=== PATIENT | female | born 1960 | race Caucasian/White ===

== ENCOUNTER 2018-12-11 12:09 | Emergency (ER) | payer OTHER ==
[~2018-12-11] VITALS: Wt 118.0 kg
[2018-12-11 12:12] VITALS: BP 160/78; PULSE 99; RESP 18
[2018-12-11] MEDS ORDERED: KETOROLAC 30 MG INJ IM STA (13:30)
[2018-12-11] MEDS ORDERED: CYCLOBENZAPRINE 10 MG TAB PO ONE (14:00)
[2018-12-11] MEDS ORDERED: HYDR-3980 PO (14:08)
[2018-12-11] MEDS ORDERED: MED4DP PO (14:08)
[2018-12-11] MEDS ORDERED: IBUP-1542 PO (14:08)
--- NOTE | 2018-12-11 14:21 | ERD ---
ER Documentation Chief Complaint Chief Complaint back pain rad left leg x 10 days HPI This is a 58-year-old with history of sciatica and chronic back pain presents for exacerbation of her chronic back pain x10 days. Patient states she thinks she may have moved a certain way which provoked her pain. She reports sharp 9/10 left lower lumbar pain, that radiates down to her left leg, progressively worse for the past 2 days. Pain is worse when lying down or moving. She states she usually takes [place] for pain but is running out of this medication. She states she had an MRI of her lumbar spine 2 years ago which showed herniated disks of L5-S1 and L4-L5. She denies any direct trauma or fall. She states she used to see an orthopedist and was given epidural injections "as needed ". She does not have any appointment to see the orthopedist soon. She denies any loss of bowel or bladder control. Denies any focal weakness. Denies any fevers or chills. Denies any trauma. Denies any other symptoms. ROS All systems reviewed and are negative except as per history of present illness. Medications Home Meds Active Scripts Ibuprofen* (Motrin*) 600 Mg Tab, 600 MG PO Q6H PRN for PAIN AND OR ELEVATED TEMP, #30 TAB Prov:DISHIGRIKIAN,ZEPYUR N PA-C 12/11/18 Hydrocodone/Acetaminophen ([place] 10-325 Tablet) 1 Each Tablet, 1 EACH PO Q12 for pain, #10 TAB Prov:DISHIGRIKIAN,ZEPYUR N PA-C 12/11/18 Methylprednisolone* (Medrol* DOSE PACK) 4 Mg/Dose-Pack Tab.ds.pk, 4 MG PO . DIRECTED, #1 PACKET Prov:DISHIGRIKIAN,ZEPYUR N PA-C 12/11/18 Allergies Allergies: Coded Allergies: No Known Allergy (Unverified , 12/11/18) PMhx/Soc Hx Miscellaneous Medical Probl: Yes (SCIATICA) Hx Alcohol Use: No Hx Substance Use: No Hx Tobacco Use: No Physical Exam Vitals Vital Signs Date Temp Pulse Resp B/P (MAP) Pulse Ox O2 O2 Flow FiO2 Time Delivery Rate 12/11/18 98.1 99 18 160/78 99 12:12 (105) Physical Exam Const: + Moderate distress, secondary to pain. And bleeding with a cane Head: Atraumatic Eyes: Normal Conjunctiva ENT: Normal External Ears, Nose and Mouth. Neck: Full range of motion. No meningismus. Resp: Clear to auscultation bilaterally Cardio: Regular rate and rhythm, no murmurs Abd: Soft, non tender, non distended. Normal bowel sounds Skin: No petechiae or rashes Back: + Moderate left paralumbar spinal tenderness palpation. No midline tenderness. No step-offs. 5/5 BLE strength, sensation grossly intact. Ext: No cyanosis, or edema Neur: Awake and alert Psych: Normal Mood and Affect Results 24 hrs Current Medications Medications Dose Sig/Nadja Start Time Status Last (Trade) Ordered Route PRN Stop Time Admin Dose Reason Admin Ketorolac 30 mg ONCE STAT 12/11/18 DC 12/11/18 Tromethamine IM 13:30 12/11/18 13:46 (Toradol) 13:31 20 mg ONCE ONCE 12/11/18 DC 12/11/18 Cyclobenzapri PO 14:00 12/11/18 13:46 ne HCl 14:01 (Flexeril) Procedures/MDM ED COURSE: The patient was given Flexeril, IM Toradol The medication was well tolerated and the patient had market improvement in symptoms. The patient remained stable throughout ED course. MEDICAL DECISION MAKIN-year-old female with history of sciatica presents with exacerbation of her chronic back pain. She has no new trauma. I do not think she needs further w ork-up or advanced imaging other symptoms are chronic in nature. Her pain improved status post Flexeril and Toradol. She has no focal neurologic deficits on physical exam. I have low suspicion for epidural abscess, cauda equina, cord compression, spinal tumor/mass or compression fracture. She has no fever here and vital signs are stable. She was given a very short prescription for [place], as well as a Medrol Dosepak. I discussed with her that she needs to follow-up with the orthopedist or [facility] for further management of her chronic pain. Patient understands. She is discharged home with strict return precautions. PRESCRIPTIONS: Medrol Dosepak, [place], ibuprofen SPECIALIST FOLLOW UP RECOMMENDED: Ortho, [facility] Patient has been advised to follow up with primary care in 1-2 days. Blood Pressure Assessment: Patient's blood pressure was elevated (>120/80) but appears stable without evidence of hypertension emergency or urgency. The patient was counseled about the risks of hypertension and urged to pursue outpatient monitoring and therapy within a week with their primary care physician. Departure Diagnosis: Primary Impression: Sciatica Laterality: left Qualified Codes: M54.32 - Sciatica, left side Condition: Stable Patient Instructions: Back Pain W/ Sciatica Referrals: [facility] 7 a.m.- 11 p.m. Every Day of the Week NO APPOINTMENT OR AUTHORIZATION NEEDED SO [facility] Hours: Mon-Thu 9:00 AM - 5:00 PM Additional Instructions: you must follow-up with your primary care provider for referral to an orthopedist. Take the steroids for the next few days, I am giving you a very short prescription of [place] however this needs to be refilled by either your primary care doctor and orthopedist. Return here for any loss of bowel or bladder control, fevers, numbness, tingling or any other worsening symptoms. ENID DE LUNA PA-C Dec 11, 2018 14:21
== END 2018-12-11 14:31 | disposition home or self-care (01) ==
LOC: FTE 12:09
DX: M54.42 Lumbago with sciatica, left side (principal)
CPT/HCPCS: 96372; J1885; Z7502; Z7610

== ENCOUNTER 2019-01-05 14:18 | Emergency (ER) | payer OTHER ==
[~2019-01-05] VITALS: Ht 165.1 cm; Wt 99.0 kg
[~2019-01-05 14:18] MED LIST: HYDR-3980 PO; IBUP-1542 PO; MED4DP PO
[2019-01-05 14:28] VITALS: Ht 165.1 cm; Wt 99.0 kg
[2019-01-05] MEDS ORDERED: KETOROLAC 60 MG INJ IM STA (16:25)
[2019-01-05] MEDS ORDERED: HYDROCODONE/APAP (10/325) TAB PO ONE (16:30)
[2019-01-05] MEDS ORDERED: NAPR-985 PO (16:30)
[2019-01-05] MEDS ORDERED: CYCL10TA7 PO (16:30)
[2019-01-05] MEDS ORDERED: METHYLPREDNISOLONE 125 MG INJ IM ONE (16:30)
[2019-01-05] MEDS ORDERED: CYCLOBENZAPRINE 10 MG TAB PO ONE (16:30)
[2019-01-05] MEDS ORDERED: HYDR-3980 PO (16:30)
--- NOTE | 2019-01-05 16:40 | ERD ---
ER Documentation Chief Complaint Chief Complaint BACK PAIN , HX SCIATICA HPI This is a 58-year-old female with a history of sciatica and chronic low back pain who presents ED with complaints of flareup of back pain that started roughly 3 weeks ago. Patient states that the pain is localized to the left lower back and radiates down the left posterior leg. pain is aggravated with lying down and moving. Patient states that she was seen by her primary care physician and had an MRI ordered. Patient has not had MRI performed yet. is seeking an epidural injection for her pain. Denies recent fall or injury. Denies fevers, chills, bowel/bladder incontinence, saddle paresthesias, weakness. No history of IV drug abuse. Ambulates with cane. ROS All systems reviewed and are negative except as per history of present illness. Medications Home Meds Active Scripts Naproxen* (Naprosyn*) 500 Mg Tablet, 500 MG PO BID PRN for PAIN AND/OR INFLAMMATION, #30 TAB Prov:FRIEDA KEARNS PA-C 01/05/19 Cyclobenzaprine Hcl* (Cyclobenzaprine Hcl*) 10 Mg Tablet, 10 MG PO TID, #15 TAB Prov:FRIEDA KEARNSC 01/05/19 Hydrocodone/Acetaminophen ([place] 10-325 Tablet) 1 Each Tablet, 1 TAB PO Q6H PRN for PAIN, #7 TAB Prov:FRIEDA KEARNS PA-C 01/05/19 Ibuprofen* (Motrin*) 600 Mg Tab, 600 MG PO Q6H PRN for PAIN AND OR ELEVATED TEMP, #30 TAB Prov:ELMOIGRIKIANKRAIGPYUR Maurice PA-C 12/11/18 Hydrocodone/Acetaminophen ([place] 10-325 Tablet) 1 Each Tablet, 1 EACH PO Q12 for pain, #10 TAB Prov:ELMOIGRIKIANKRAIGPYUR N PA-C 12/11/18 Methylprednisolone* (Medrol* DOSE PACK) 4 Mg/Dose-Pack Tab.ds.pk, 4 MG PO . DIRECTED, #1 PACKET Prov:ELMOIGRIKIANZEPYUR N PA-C 12/11/18 Allergies Allergies: Coded Allergies: No Known Allergy (Unverified , 12/11/18) PMhx/Soc Hx Miscellaneous Medical Probl: Yes (SCIATICA) Hx Alcohol Use: No Hx Substance Use: No Hx Tobacco Use: No FmHx Family History: No diabetes Physical Exam Vitals Vital Signs Date Temp Pulse Resp B/P (MAP) Pulse Ox O2 O2 Flow FiO2 Time Delivery Rate 01/05/19 98.5 99 18 160/71 99 14:28 (100) Physical Exam Const: In mild distress secondary to pain Head: Atraumatic Eyes: Normal Conjunctiva ENT: Normal External Ears, Nose and Mouth. Neck: Full range of motion. No meningismus. Resp: Clear to auscultation bilaterally Cardio: Regular rate and rhythm, no murmurs Skin: No petechiae or rashes Back: No thoracic or lumbar midline tenderness, there is moderate tenderness palpation along the paravertebral muscles in the left low back, no step-off deformities, 5 out of 5 strength, positive straight leg raise on the left-hand side Ext: No cyanosis, or edema Neur: Awake and alert Psych: Normal Mood and Affect Results 24 hrs Current Medications Medications Dose Sig/Nadja Start Time Status Last (Trade) Ordered Route PRN Stop Time Admin Dose Reason Admin 1 tab ONCE ONCE 01/05/19 DC 01/05/19 Acetaminophen PO 16:30 16:37 / 01/05/19 16:31 Hydrocodone Bitart ([place] (10/325)) 10 mg ONCE ONCE 01/05/19 DC 01/05/19 Cyclobenzapri PO 16:30 16:37 ne HCl 01/05/19 16:31 (Flexeril) 125 mg ONCE ONCE 01/05/19 DC 01/05/19 Methylprednis IM 16:30 16:38 olone Sodium 01/05/19 16:31 Succinate (Solu-Medrol) Ketorolac 60 mg ONCE STAT 01/05/19 DC 01/05/19 Tromethamine IM 16:25 16:38 (Toradol) 01/05/19 16:28 Procedures/MDM ER COURSE: The patient was given Toradol, Solu-Medrol, Flexeril and [place] The medication was well tolerated and the patient reports improvement in symptoms. The patient was stable throughout ED course. I kept the patient and/or family informed of laboratory and diagnostic imaging results throughout the emergency room course. The patient was promptly evaluated and a treatment plan was devised based on H&P and other data. This plan was discussed with the patient who agreed and had no further questions or concerns prior to discharge. MEDICAL DECISION MAKING: This is a 58-year-old female with a history of sciatica and chronic low back pain who presents ED with complaints of flareup of low back pain that started roughly 3 weeks ago. Patient was seen by her primary care physician and has an MRI ordered. Patient has not had MRI performed - advised patient that she needs to go have this done as she does have the order in hand to have it done at the [facility]. is here seeking an epidural injection. I advised and patient that we cannot do any epidural injections in the emergency department today and she needs to be seen by an digital campaign specialist to have this done. Patient was advised to follow-up with digital campaign specialist and pain management. History and physical examination other data not consistent with processing including cauda equina syndrome, cord compression, infiltrative etiology, infectious etiology, epidural abscess, fracture, obstructive pyelonephritis, abdominal aortic aneurysm. Vitals are stable and patient can be managed outpatient with close follow-up. Advised patient to follow up with primary care in the next 48 hours. return to ED with any worsening symptoms DISPOSITION PLAN: We discussed follow up with the patient's primary care doctor within 24 to 48 hours. Patient counseled regarding my diagnostic impression and care plan. Prior to discharge all questions answered. Pt agrees with treatment plan and understands strict return precautions. Precautionary instructions provided including instructions to return to the ER if not improving or for any worsening or changing symptoms or concerns. SPECIALIST FOLLOW UP RECOMMENDED: digital campaign specialistkade Patient has been advised to follow up with primary care in 1-2 days. Disclaimer: Inadvertent spelling and grammatical errors are likely due to EHR/dictation software use and do not reflect on the overall quality of patient care. Also, please note that the electronic time recorded on this note does not necessarily reflect the actual time of the patient encounter. Blood Pressure Assessment: Patient's blood pressure was elevated (>120/80) but appears stable without evidence of hypertension emergency or urgency. The patient was counseled about the risks of hypertension and urged to pursue outpatient monitoring and therapy within a week with their primary care physician. Departure Diagnosis: Primary Impression: Sciatica Laterality: left Qualified Codes: M54.32 - Sciatica, left side Condition: Stable Patient Instructions: Understanding Sciatica, Back Pain W/ Sciatica Referrals: EARL NICHOLS MD,SUSIE TARIQ,KIP VALENTINE,KANWAL DAMICO MD,RAMESH SPRAGUE,[facility] YOU HAVE RECEIVED A MEDICAL SCREENING EXAM AND THE RESULTS INDICATE THAT YOU DO NOT HAVE A CONDITION THAT REQUIRES URGENT TREATMENT IN THE EMERGENCY DEPARTMENT. FURTHER EVALUATION AND TREATMENT OF YOUR CONDITION CAN WAIT UNTIL YOU ARE SEEN IN YOUR DOCTORS OFFICE WITHIN THE NEXT 1-2 DAYS. IT IS YOUR RESPONSIBILITY TO MAKE AN APPOINTMENT FOR FOLOW-UP CARE. IF YOU HAVE A PRIMARY DOCTOR --you should call your primary doctor and schedule an appointment IF YOU DO NOT HAVE A PRIMARY DOCTOR YOU CAN CALL OUR PHYSICIAN REFERRAL HOTLINE AT IF YOU CAN NOT AFFORD TO SEE A PHYSICIAN YOU CAN CHOSE FROM THE FOLLOWING [facility] [address] [facility] [address] [facility] [facility] [address] [facility] [address] [facility] [address] [facility] [facility] [address] [facility] Hours: Mon-Fri 9:00 AM - 5:00 PM Additional Instructions: Patient advised to return to the ED immediately for new or worsening symptoms. Patient advised to follow up with primary care provider in the next 24-48 hours. Patient verbalized understanding and agrees with treatment plan and course of action. If patient has no primary care they may follow up with one of the [facility] clinics listed on the following page or one of the options listed below [facility] [address] [place] [id number] or [facility] [address] [place] [address] or [facility] [address] [place] [address] FRIEDA KEARNS PA-C Jan 05, 2019 16:40
[2019-01-05 17:05] VITALS: BP 164/71; PULSE 79; RESP 18
== END 2019-01-05 17:06 | disposition home or self-care (01) ==
LOC: FTE 14:18
DX: M54.32 Sciatica, left side (principal)
CPT/HCPCS: 96372; J1885; J2930; Z7502; Z7610

== ENCOUNTER 2019-01-11 16:27 | Emergency (ER) | payer OTHER ==
[~2019-01-11] VITALS: Ht 172.7 cm; Wt 113.6 kg
[~2019-01-11 16:27] MED LIST changes: +CYCL10TA7 PO; +NAPR-985 PO
[2019-01-11 16:30] VITALS: Ht 172.7 cm; Wt 113.6 kg
--- NOTE | 2019-01-11 18:39 | ERD ---
ER Documentation Chief Complaint Chief Complaint leg pain/swelling, referred by MD for venous doppler to r/o DVT HPI Patient is a 58-year-old female, past medical history of sciatica, presents to the ER for concerns of needing a Doppler ultrasound. Patient was referred to the ER by Dr. Cruz at [facility] [place]. Patient states she was seeing this provider earlier today when he noticed that patient had bilateral leg swelling. Patient denies any fevers or chills. Patient denies any recent travel, history of DVT/PE, recent surgeries, chest pain, shortness of breath, or hormonal use. Patient states she has had a history of left-sided sciatica for the last month. Patient denies any saddle seizure, urine incontinence or stool incontinence. Patient denies falls or trauma. ROS All systems reviewed and are negative except as per history of present illness. Medications Home Meds Active Scripts Ibuprofen* (Motrin*) 600 Mg Tab, 600 MG PO Q6, #30 TAB Prov:MARIZA ARMAS PA-C 01/11/19 Naproxen* (Naprosyn*) 500 Mg Tablet, 500 MG PO BID PRN for PAIN AND/OR INFLAMMATION, #30 TAB Prov:FRIEDA KEARNS PA-C 01/05/19 Cyclobenzaprine Hcl* (Cyclobenzaprine Hcl*) 10 Mg Tablet, 10 MG PO TID, #15 TAB Prov:FRIEDA KEARNS PA-C 01/05/19 Hydrocodone/Acetaminophen ([place] 10-325 Tablet) 1 Each Tablet, 1 TAB PO Q6H PRN for PAIN, #7 TAB Prov:FRIEDA KEARNS PA-C 01/05/19 Ibuprofen* (Motrin*) 600 Mg Tab, 600 MG PO Q6H PRN for PAIN AND OR ELEVATED TEMP, #30 TAB Prov:DISHIGRIKIENID BIRD PA-C 12/11/18 Hydrocodone/Acetaminophen ([place] 10-325 Tablet) 1 Each Tablet, 1 EACH PO Q12 for pain, #10 TAB Prov:ELMOIGRIKIANENID PA-C 12/11/18 Methylprednisolone* (Medrol* DOSE PACK) 4 Mg/Dose-Pack Tab.ds.pk, 4 MG PO . DIRECTED, #1 PACKET Prov:ELMOIGRIKIANZEPYUR N PA-C 12/11/18 Allergies Allergies: Coded Allergies: No Known Allergy (Unverified , 01/05/19) PMhx/Soc History of Surgery: No Anesthesia Reaction: No Hx Neurological Disorder: No Hx Respiratory Disorders: No Hx Cardiac Disorders: No Hx Psychiatric Problems: No Hx Miscellaneous Medical Probl: Yes (SCIATICA, DM) Hx Alcohol Use: No Hx Substance Use: No Hx Tobacco Use: No FmHx Family History: No diabetes Physical Exam Vitals Vital Signs Date Temp Pulse Resp B/P (MAP) Pulse Ox O2 O2 Flow FiO2 Time Delivery Rate 01/11/19 98.7 103 16 161/74 99 16:30 (103) Physical Exam GENERAL: Well-developed, well-nourished female. Appears in no acute distress. Speaking in full sentences. HEAD: Normocephalic, atraumatic. EYES: Pupils are equally reactive bilaterally. EOMs grossly intact. No conjunctival erythema. ENT: Moist mucous membranes. No uvula deviation. No kissing tonsils. NECK: Supple. No meningismus. Normal range of motion of the neck. LUNG: Clear to auscultation bilaterally. No rhonchi, wheezing, rales or coarse breath sounds. HEART: Tachycardic. No murmurs, rubs or gallops. EXTREMITIES: Equal pulses bilaterally. No peripheral clubbing, cyanosis or edema . Bilateral 1+ pitting edema noted. 2+ and equal dorsalis pedis pulses NEUROLOGIC: Alert and oriented. Moving all four extremities without any difficulty. Normal speech. SKIN: Normal color. Warm and dry. No rashes or lesions. Procedures/MDM ED COURSE: The patient was stable throughout ED course. I kept the patient and/or family informed of laboratory and diagnostic imaging results throughout the ED course. DIAGNOSTIC IMAGING: Read by radiologist. Patient: WILL AUGUSTE : 1960 Age: 58 Sex: F MR #: [id number] DOS: 01/11/19 1735 Ordering MD: MARIZA ARMAS PA-C Location: E Room/Bed: PROCEDURE: XR Chest. CLINICAL INDICATION: leg swelling TECHNIQUE: Portable AP view of the chest was obtained. COMPARISON: None. FINDINGS: No pulmonary consolidation or edema. No effusion or pneumothorax. Cardiac silhouette is normal. No acute osseous abnormality. IMPRESSION: No evidence of acute cardiopulmonary process. RPTAT: HRGF Physician Arin Date Time Electronically viewed and signed by Symone Hodges Physician on 01/11/2019 19:33 RF/ CC: MARIZA ARMAS PA-C [phone] Patient: WILL AUGUSTE : 1960 Age: 58 Sex: F MR #: [id number] DOS: 01/11/19 1711 Ordering MD: MARIZA ARMAS PA-C [facility]: [facility] Room/Bed: PROCEDURE: US Lower extremity Venous. CLINICAL INDICATION: Bilateral lower extremity edema TECHNIQUE: Multiple sonographic images of the bilateral lower extremity deep venous system was obtained utilizing grayscale, color-flow, compressive sonography and doppler imaging with augmentation. The images were reviewed on a PACS workstation. COMPARISON: None. FINDINGS: There is normal compressibility and flow within the right common femoral, femoral , posterior tibial and popliteal veins. There is normal compressibility and flow within the left common femoral, femoral , posterior tibial and popliteal veins. RPTAT: AA IMPRESSION: No sonographic evidence for deep venous thrombosis. .Jamil Felix MD, MD Date Time Electronically viewed and signed by .Jamil Felix MD, MD on 01/11/2019 19:05 .S/ CC: MARIZA ARMAS PA-C [phone] MEDICAL DECISION MAKING: Patient is a 58-year-old female with past medical history of sciatica, presents the ER for concerns of needing a bilateral Doppler ultrasound to rule out DVT.. Patient denies any recent travel, history of DVT/ PE, recent surgeries, hormonal use. Vital signs were reviewed. Patient is afebrile. Patient was not hypoxic. Patient was hemodynamically stable. Doppler ultrasound was unremarkable. See formal report above. Chest x-ray was unremarkable. I was placed to Dr. Cruz to discuss normal Doppler ultrasound findings. Operative report was given to the patient patient advised to provide report to provider. At this time with the patient's presentation most consistent with bilateral leg swelling and sciatica. Low suspicion for DVT, PE, acute CHF, cardiomegaly, pleural effusion. Patient was nontoxic, [id number] prior to discharge. DISCHARGE: At this time, patient is stable for discharge and outpatient management. I have instructed the patient to follow-up with his/her primary care physician in 1-2 days. I have discussed with the patient the possibility of needing to see a specialist for further workup and imaging studies if symptoms persist. I have instructed the patient to promptly return to the ER for any new or worsening symptoms including increased pain, fever, nausea, vomiting, weakness or LOC. The patient and/or family expressed understanding of and agreement with this plan. All questions were answered. Home care instructions were provided. Patient's blood pressure was elevated (>120/80) but appears stable without evidence of hypertensive emergency, hypertensive urgency or end-organ failure. I had discussion with the patient about the risks of hypertension. I have advised the patient to follow up with his/her primary care physician for outpatient m onitoring and treatment for hypertension in 2-3 days. I have instructed the patient to return to the ER for any new or worsening symptoms including chest pain, shortness of breath, headache, blurred vision, confusion, nausea, vomiting or LOC. Disclaimer: Inadvertent spelling and grammatical errors are likely due to EHR/dictation software use and do not reflect on the overall quality of patient care. Also, please note that the electronic time recorded on this note does not necessarily reflect the actual time of the patient encounter. Departure Diagnosis: Primary Impression: Leg swelling Additional Impression: Sciatica Laterality: left Qualified Codes: M54.32 - Sciatica, left side Condition: Fair Referrals: NYA WAGGONER MD (PCP) MARIZA ARMAS PA-C Jan 11, 2019 18:39
[2019-01-11] MEDS ORDERED: IBUP-1542 PO (19:37)
[2019-01-11 19:40] VITALS: BP 155/72; PULSE 82; RESP 16
== END 2019-01-11 19:41 | disposition home or self-care (01) ==
LOC: FTE 16:27
DX: M79.89 Other specified soft tissue disorders (principal); M54.32 Sciatica, left side; E11.9 Type 2 diabetes mellitus without complications
CPT/HCPCS: 71045; 93970; Z7502